=== PATIENT | male | born 1990 | race Two or more races ===

== ENCOUNTER 2017-06-29 02:38 | Emergency (ER) | payer MEDICAID ==
[~2017-06-29] VITALS: Ht 177.8 cm; Wt 79.4 kg
[2017-06-29 03:08] LABS: Basophils # (auto) 0.1 uL; Basophils % (auto) 0.7 % (0.0-2.0); Eosinophils # (auto) 0.1 uL; Eosinophils % (auto) 1.1 % (0.0-7.0); Hematocrit 44.6 % (41.0-53.0); Hemoglobin 14.8 g/dL (13.5-17.5); Lymphocytes # (auto) 2.4 uL; Lymphocytes % (auto) 19.6 % (10.0-50.0); Mean Corpuscular Hgb Conc. 33.2 g/dL (32.0-36.0); Mean Corpuscular Volume 84.1 fL (80.0-100.0); Mean Platelet Volume 8.8 fL (6.9-10.8); Monocytes # (auto) 0.8 uL; Monocytes % (auto) 6.1 % (0.0-12.0); Neutrophils # (auto) 9.1 uL; Neutrophils % (auto) 72.5 % (37.0-80.0); Platelet Count (auto) 244 10^3/uL (140-450); Red Cell Distribution Width 13.9 % (11.8-14.3); White Blood Cell 12.5 10^3/uL (4.4-10.8)
[2017-06-29 03:26] LABS: Acetaminophen < 2.0 ug/mL (10-30); Albumin 3.6 g/dL (3.4-5.0); BUN/Creatinine Ratio 7.3; Calcium 7.9 mg/dL (8.5-10.1); Magnesium 2.6 mg/dL (1.6-2.6); Potassium 3.2 mmol/L (3.5-5.1); Salicylate < 1.7 mg/dL (2.8-20.0)
[2017-06-29 03:36] LABS: Bilirubin, Total 0.3 mg/dL (0.2-1.0); Total Protein 7.5 g/dL (6.4-8.2)
[2017-06-29] MEDS ORDERED: THIAMINE HCL 100 MG/ML 2ML VIAL IV ONE (04:15)
[2017-06-29] MEDS ORDERED: SODIUM CHLORIDE 0.9% 1,000 ML IV ONE (04:15)
[2017-06-29 05:15] VITALS: BP 118/72
[2017-06-29] MEDS ORDERED: POTASSIUM CHL 20 Meq TABLET PO ONE (05:30)
== END 2017-06-29 05:24 | disposition home or self-care (01) ==
LOC: EDBD 02:38 → ER 02:43
DX: F10.129 Alcohol abuse with intoxication, unspecified (principal); G92 Toxic encephalopathy; E87.6 Hypokalemia; D72.829 Elevated white blood cell count, unspecified
CPT/HCPCS: 36415; 80053; 80320; 80329; 83735; 85025; 93005; 96361; 96374; 99285; J3411; J7030